=== PATIENT | female | born 1990 ===

== ENCOUNTER → 2024-07-05 15:03 | Outpatient (CLI) | payer OTHER, SELFPAY ==
--- NOTE | 2024-07-05 | DI.ECHO.S_ITS ---
[facility]+ [facility] : : [id number] . : : [place] : : [id number] : : Phone: [phone] Echocardiogram Report + + :Name: CARLEY BALL Study Date: 07/05/2024 Height: 62 in : :[facility] ReadingLocation: Weight: 155 lb : : Gender: Female BSA: 1.7 m2 : :: 1990 Age: 33 yrs BP: 110/78 mmHg: :Reason For Study: CONGENITAL CARDIOVASCULAR ANOMALY : :Ordering Physician: ELEN, : :ALOK Performed By: Madie Alanis : :Referring: ALOK MYRICK : + + Interpretation Summary The left ventricular cavity is small. Left ventricular ejection fraction is estimated to be 70 +/- 5%. No significant LV outflow tract obstruction. The right ventricle is normal in size and function. 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 There is mild tricuspid regurgitation. The IVC is of normal diameter and collapses greater than 50% with a sniff. This suggests a low right atrial pressure of 3 mm Hg. Procedure: A two-dimensional transthoracic echocardiogram with color flow and Doppler was performed. The study quality was technically adequate. There is no prior echocardiogram noted for this patient. The patient was in sinus rhythm with heart rates between 85-91 bpm during the exam. Left Ventricle: The left ventricular cavity is small. There is normal left ventricular wall thickness. There is no thrombus. Left ventricular ejection fraction is estimated to be 70 +/- 5%. There are no focal wall motion abnormalities. MV E/A: 1.3 Med Peak E' Anderson: 7.2 cm/sec E/E' med: 9.8. No significant diastolic dysfunction. Right Ventricle: The right ventricle is normal in size and function. Atria: The left atrial size is normal. Right atrial size is normal. 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 Mitral Valve: The mitral valve is normal in structure and function. There is trace mitral regurgitation. Aortic Valve: The aortic valve is trileaflet. The aortic valve opens well. There is no aortic valve stenosis. No aortic regurgitation is present. Tricuspid Valve: The tricuspid valve is normal. There is mild tricuspid regurgitation. Pulmonary artery pressures cannot be estimated because of the lack of a measurable TR jet velocity. Pulmonic Valve: The pulmonic valve leaflets are thin and pliable; valve motion is normal. There is mild pulmonic regurgitation. Great Vessels: The aortic root is normal size. The dimensions of the ascending aorta are normal. The IVC is of normal diameter and collapses greater than 50% with a sniff. This suggests a low right atrial pressure of 3 mm Hg. Pericardium/ Pleura There is no pericardial effusion. There is no pleural effusion. MMode/2D Measurements & Calculations LVIDd: 3.9 cm LVOT diam: 2.0 cm LVIDs: 2.4 cm Ao root diam: 2.5 cm FS: 37.1 % asc Aorta Diam: 2.3 cm IVSd: 0.85 cm Ao Arch Diam (Prox Trans): 2.3 cm LVPWd: 0.89 cm LV cheng. diameter/BSA (cm/m^2): 2.3 LV sys. diameter/BSA (cm/m^2): 1.4 LA A2 area: 11.6 cm2 RA long axis: 4.5 cm LA A4 area: 15.0 cm2 RA area: 13.6 cm2 LA length (vol): 5.0 cm RA vol: 35.1 ml LA vol: 29.4 ml RA : 20.5 ml/m2 LA vol index: 17.1 ml/m2 IVC diam: 1.1 cm RVD1 (basal): 3.8 cm RVD2 (mid): 3.8 cm TAPSE: 1.7 cm Doppler Measurements & Calculations Ao V2 max: 162.1 cm/sec LVOT Max Anderson: 91.6 cm/sec Ao V2 mean: 108.1 cm/sec LV V1 max P.4 mmHg Ao max P.5 mmHg LV V1 VTI: 18.1 cm Ao mean P.3 mmHg TERRELL(I,D): 2.3 cm2 Ao V2 VTI: 26.3 cm TERRELL(V,D): 1.9 cm2 sev ratio: 0.69 TERRELL indexed to BSA (cm^2/m^2): 1.3 MV E max anderson: 70.1 cm/sec PA V2 max: 101.3 cm/sec MV A max anderson: 55.3 cm/sec PA V2 mean: 69.4 cm/sec MV E/A: 1.3 PA mean P.2 mmHg Med Peak E' Anderson: 7.2 cm/sec PA pr(Accel): 36.2 mmHg E/E' med: 9.8 Lat Peak E' Anderson: 12.9 cm/sec E/E' lat: 5.4 E/e' average: 7.6 MV dec time: 0.18 sec SV(OT): 59.2 ml Reading Physician:04:44 PM
== END ==
LOC: ECHO 15:05
PROVIDERS: PCP Obstetrics & Gynecology; Referring Provider Obstetrics & Gynecology; Visit Provider Obstetrics & Gynecology
DX: O99.42 Diseases of the circulatory system complicating childbirth (principal); I07.1 Rheumatic tricuspid insufficiency
CPT/HCPCS: 93306